=== PATIENT | male | born 1980 ===

== ENCOUNTER 2017-09-30 20:51 | Emergency (ER) | payer OTHER ==
[2017-09-30 21:12] VITALS: BP 123/83; PULSE 92; RESP 17; TEMP 97.5; O2SAT 98
--- NOTE | 2017-09-30 23:31 | ED PDOC ---
HPI: Headache Time Seen by Provider: 09/30/17 21:17 Chief Complaint (Nursing): Headache Chief Complaint (Provider): headache History Per: Patient History/Exam Limitations: no limitations Quality: Pressure Preceeding Symptoms: denies: Visual Disturbances, Known Migraine Symptoms Associated Symptoms: denies: Photophobia, Blurred Vision, Nausea, Vomiting, Extremity Weakness Additional Complaint(s): 37yo M in ED for eval of headache x9 days-states that his WHITE is isolated the right side without: nausea vomiting fever neck pain chest pain or abd pain. pt was seen at [facility] state he had a brain MRI positive only for sinusitis and Rx abx-states he has taken it but it has not relieved his WHITE. no head injury no family hx of aneurysm , CVA - Risk Factors SAH Risk Factors: Nest Degree Relative(s) W/SAH, Marfan's Syndrome, Aleksey-Danlos Syndrome , Neurofibromatos, Type I, Sudden Onset Of Pain Past Medical History Reviewed: Historical Data, Nursing Documentation, Vital Signs Vital Signs: Last Vital Signs Temp 97.5 F L 09/30/17 21:08 Pulse 92 H 09/30/17 21:08 Resp 17 09/30/17 21:08 BP 123/83 09/30/17 21:08 Pulse Ox 98 09/30/17 21:08 - Medical History PMH: Denies: Chronic Kidney Disease - Family History Family History: States: No Known Family Hx - Home Medications Home Medications: Ambulatory Orders Medication Instructions Recorded Ibuprofen [Motrin] 400 mg PO Q6 #30 tab 09/30/17 - Allergies Allergies/Adverse Reactions: Allergies Allergy/AdvReac Type Severity Reaction Status Date / Time No Known Allergies Allergy Verified 09/30/17 21:12 Review of Systems ROS Statement: Except As Marked, All Systems Reviewed And Found Negative Constitutional: Negative for: Fever, Chills Neurological: Positive for: Headache Physical Exam - Reviewed Nursing Documentation Reviewed: Yes Vital Signs Reviewed: Yes - Physical Exam Appears: Positive for: Well, Non-toxic, No Acute Distress Skin: Positive for: Normal Color, Warm, DRY Neck: Positive for: Normal, Painless ROM Cardiovascular/Chest: Positive for: Regular Rate, Rhythm Respiratory: Positive for: CNT, Normal Breath Sounds Gastrointestinal/Abdominal: Positive for: Normal Exam, Bowel Sounds, Soft Back: Positive for: Normal Inspection Extremity: Positive for: Normal ROM Neurologic/Psych: Positive for: Alert, 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 ). Negative for: Motor/Sensory Deficits, Facial Droop - ECG O2 Sat by Pulse Oximetry: 98 Medical Decision Making Medical Decision Making: pt had negative MRI no indication based on PE for further imagining. will given torodol IM for pain control-WHITE was relieved with medication. pt is requesting to ho home. Disposition - Clinical Impression Clinical Impression: Headache - Patient ED Disposition Is Patient to be Admitted: No Counseled Patient/Family Regarding: Diagnosis, Need For Followup, Rx Given - Disposition Referrals: [facility] [Outside] Disposition: Routine/Home Disposition Time: 23:34 Condition: STABLE Prescriptions: Ibuprofen [Motrin] 400 mg PO Q6 #30 tab Instructions: Migraine Headache (ED)
== END 2017-09-30 23:45 | disposition home or self-care (01) ==
LOC: H.ER 20:51
DX: R51 Headache (principal)
CPT/HCPCS: 96372; 99285; J1885